=== PATIENT | female | born 1990 | race American Indian/Alaskan Native ===

== ENCOUNTER 2021-12-17 07:30 | Inpatient (IN) | payer OTHER ==
[2021-12-12 14:41] LABS: Hematocrit 31.6 % (30.3-42.9); Hemoglobin 10.3 gm/dl (10.1-14.3); Mean Corpuscular HGB Conc 33 % (30-34); Mean Corpuscular Volume 97 fl (79-97); Platelet Count 120 K/mm3 (140-440); Red Blood Count 3.25 M/mm3 (3.65-5.03); Red Cell Distribution Width 14.2 % (13.2-15.2)
--- NOTE | 2021-12-17 11:00 | History and Physical Report ---
History of Present Illness Date of examination: 12/17/21 Date of admission: 12/17/21 10:35 Chief complaint: here for repeat c/s but states she wants TOLAC History of present illness: at 39.0wks by LMP c/w [facility] care at [facility]. Pt states she was told that she could not have a TOLAC unless she went to [place] but she wants to deliver at this hospital and would like a TOLAC here at [facility] and if unsuccessful, then a repeat c/section. Pt is aware of the risks/benefits and alternatives. Pt admits to movement, passing mucus plug and intermittent ctx that are not painful. Pt denies LOF or vag bleeding or headache. Pt admits to movement. Pt also states she had childhood asthma but no wheezing in adulthood. Past History Past Medical History: asthma Past Surgical History: section (x1) Social history: no significant social history - Obstetrical History Expected Date of Delivery: 12/24/21 Actual Gestation: 39 Week(s) 0 Day(s) Hx # Term Pregnancies: 1 Number of Living Children: 0 Medications and Allergies Allergies Allergy/AdvReac Type Severity Reaction Status Date / Time amoxicillin Allergy Unknown Verified 12/11/21 14:36 Home Medications Medication Instructions Recorded Confirmed Last Taken Type Ferrous Sulfate [Iron 325 MG] 325 mg PO BID 12/11/21 12/11/21 Unknown History Vit-Fe Fumar-FA [ 1 tab PO QDAY 12/11/21 12/11/21 Unknown History Vitamin] Review of Systems All systems: negative (intermittent ctx) - Vital Signs Vital signs: Vital Signs Temp Pulse Resp BP Pulse Ox 98 F 102 H 20 105/66 97 12/11/21 12:25 12/11/21 12:25 12/11/21 12:25 12/11/21 12:25 12/11/21 12:25 Temp Pulse Resp BP Pulse Ox 98 F 102 H 20 105/66 97 12/11/21 12:25 12/11/21 12:25 12/11/21 12:25 12/11/21 12:25 12/11/21 12:25 - Physical Exam Breasts: Positive: deferred Cardiovascular: Normal S1 Lungs: Positive: Normal air movement Abdomen: Positive: soft Genitourinary (Female): Positive: normal external genitalia Uterus: Positive: enlarged (non-tender, gravid) Extremities: Positive: normal - Obstetrical FHR: category 1 Uterine Contraction Monitor Mode: External Cervical Dilatation: 2.5 Cervical Effacement Percentage: 50 station: -2 Uterine Contraction Pattern: Irregular Uterine Contraction Intensity: Mild Results Result Diagrams: 12/12/21 12:30 All other labs normal. Assessment and Plan Term IUP with previous c/s x1, desires TOLAC, GBS+ and resistant to clinda; Now in latent labor; H/O asthma 1. Discussed risks, benefits and alternatives of TOLAC and consents signed 2. Pt offered monroe bulb, educated on risks and benefits and alternatives, and will also give low dose pitocin. 3. Pt already had cbc done at preop with thrombocytopenia, will repeat same now, however no need to repeat RPR and COVID testing per [facility] protocol 4. May have IV pain med or epidural per pt choice 5. Hopeful for vag delivery. All questions encouraged and answered
[2021-12-17] MEDS ORDERED: METOCLOPRAMIDE 10 MG/2 ML INJ IV NR (11:01)
[2021-12-17] MEDS ORDERED: BICITRA ORAL LIQD 30ML PO NR (11:01)
[2021-12-17] MEDS ORDERED: FAMOTIDINE 20 MG/2 ML INJ IV NR (11:01)
[2021-12-17] MEDS ORDERED: GENTAMICIN/NS 100 MG/100 ML 100 MG/100 ML BAG IV NR (11:02)
[2021-12-17] MEDS ORDERED: LACTATED RINGERS 1,000 ML IV SCH (11:15)
[2021-12-17] MEDS ORDERED: OXYTOCIN DRIP 30 UNITS/500 ML BAG IV SCH ×2 (12:00→13:00)
[2021-12-17] MEDS ORDERED: ceFAZolin/Water 2 GM/20 ML 2 GM/20 ML SYRINGE IV NR (12:00)
[2021-12-17] MEDS ORDERED: PROMETHAZINE 25 MG TAB PO PRN (12:09)
[2021-12-17] MEDS ORDERED: LIDOCAINE (2%) 20 MG/1 ML VIAL 20 ML MDV INFILTRATI ONE (12:09)
[2021-12-17] MEDS ORDERED: OXYTOCIN 10 UNIT/1 ML INJ IM PRN (12:09)
[2021-12-17] MEDS ORDERED: MINERAL OIL 30 ML ORAL LIQD PO PRN (12:09)
[2021-12-17] MEDS ORDERED: CARBOPROST TROMETHAMINE 250 MCG/1 ML INJ IM PRN (12:09)
[2021-12-17] MEDS ORDERED: NalbUPHINE 10 MG/1 ML INJ IV PRN (12:09)
[2021-12-17] MEDS ORDERED: LOPERAMIDE 2 MG CAP PO PRN (12:09)
[2021-12-17] MEDS ORDERED: miSOPROStol 200 MCG TAB PR PRN (12:09)
[2021-12-17] MEDS ORDERED: TERBUTALINE 1 MG/1 ML INJ SUB-Q PRN (12:09)
[2021-12-17] MEDS ORDERED: ACETAMINOPHEN 325 MG TAB PO PRN (12:09)
[2021-12-17] MEDS ORDERED: ONDANSETRON 4 MG/2 ML INJ IV PRN (12:09)
[2021-12-17] MEDS ORDERED: METHYLERGONOVINE MALEATE 0.2 MG/ML VIAL IM PRN (12:09)
[2021-12-17] MEDS ORDERED: ePHEDrine SULFATE 50 MG/1 ML INJ IV PRN (12:09)
[2021-12-17] MEDS: LACTATED RINGERS 1,000 ML IV SCH ×2 (12:37→20:37)
[2021-12-17 12:40] LABS: Basophils % (Auto) 0.4 % (0.0-1.8); Eosinophils % (Auto) 0.4 % (0.0-4.3); Hematocrit 31.7 % (30.3-42.9); Hemoglobin 10.7 gm/dl (10.1-14.3); Lymphocytes # (Auto) 1.4 K/mm3 (1.2-5.4); Lymphocytes % (Auto) 28.9 % (13.4-35.0); Mean Corpuscular HGB Conc 34 % (30-34); Mean Corpuscular Volume 96 fl (79-97); Monocytes # (Auto) 0.4 K/mm3 (0.0-0.8); Monocytes % (Auto) 8.3 % (0.0-7.3); Platelet Count 113 K/mm3 (140-440); Red Blood Count 3.29 M/mm3 (3.65-5.03); Red Cell Distribution Width 13.8 % (13.2-15.2)
[2021-12-17] MEDS: OXYTOCIN DRIP 30 UNITS/500 ML BAG IV SCH ×5 (15:10→18:48)
[2021-12-17] MEDS: VANCOMYCIN/NS 1 GM/250 ML 1 GM/250 ML BAG IV SCH (17:00)
[2021-12-17] MEDS: fentaNYL 100 MCG/2 ML INJ IV PRN ×2 (17:45→23:02)
--- NOTE | 2021-12-18 01:51 | Event Note ---
Date: 12/18/21 Cook's catheter fell out. 5 cm dilated. Membranes artificially ruptured. Clear fluid.
--- NOTE | 2021-12-18 03:55 | Anesthesia Consultation ---
Anesthesia Consult and Med Hx Date of service: 12/18/21 - Airway Anesthetic Teeth Evaluation: Good ROM Head & Neck: Adequate Mallampati Class: Class II Intubation Access Assessment: Probably Good - Pulmonary Exam CTA: Yes - Cardiac Exam Cardiac Exam: RRR - Pre-Operative Health Status ASA Pre-Surgery Classification: ASA2 Proposed Anesthetic Plan: Epidural - Pulmonary Hx Smoking: No Hx Asthma: Yes Hx Respiratory Symptoms: No SOB: No COPD: No Home Oxygen Therapy: No Hx Pneumonia: No Hx Sleep Apnea: No - Cardiovascular System Hx Hypertension: No Hx Coronary Artery Disease: No Hx Heart Attack/AMI: No Hx Angina: No Hx Percutaneous Transluminal Coronary Angioplasty (PTCA): No Hx Cardia Arrhythmia: No Hx Pacemaker: No Hx Internal Defibrillator: No Hx Valvular Heart Disease: No Hx Heart Murmur: No Hx Peripheral Vascular Disease: No - Central Nervous System Hx Neuromuscular Disorder: No Hx Seizures: No CVA: No Hx Back Pain: No Hx Psychiatric Problems: No - Gastrointestinal Hx Ulcer: No Hx Gastroesophageal Reflux Disease: No - Endocrine Hx Renal Disease: No Hx End Stage Renal Disease: No Hx Cirrhosis: No Hx Liver Disease: No Hx Insulin Dependent Diabetes: No Hx Non-Insulin Dependent Diabetes: No Hx Thyroid Disease: No Hx Hypothyroidism: No Hx Hyperthyroidism: No - Hematic Hx Anemia: Yes Hx Sickle Cell Disease: No - Other Systems Hx Alcohol Use: No Hx Substance Use: No Hx Cancer: No Hx Obesity: No
--- NOTE | 2021-12-18 03:56 | Anesthesia Day of Surgery ---
Anesthesia Day of Surgery - Day of Surgery Patient Examined: Yes Patient H&P Reviewed: Yes Patient is NPO: Yes Beta Blockers: No Cardiac Clearance: No Pulmonary Clearance: No Nehemias's Test: N/A
--- NOTE | 2021-12-18 03:58 | Progress Note ---
Labor Epidural - Labor Epidural Start Time: 03:35 Stop Time: 03:43 Performed by:: bita Procedure: Epidural Requested for Labor Pain. H&P and PT Chart reviewed and consent obtained. Time out performed and the procedure was explained, all questions answered. Patient was placed in a sitting position with monitors applied. The PTs back was prepped and draped in usual sterile fashion. The Skin was localized with 3 mL of 1% lidocaine at L3-L4. A 17-gauge Touhy epidural needle was advanced to JEREMI with saline at 7 cm and no blood/CSF was noted via epidural needle. Epidural catheter was advanced to 12 cm. There was negative aspiration for blood and CSF in the catheter and negative response to a test dose of 3 ml 1.5% lidocaine w/ Epi and a sterile dressing was applied Patient tolerated the procedure well and there were no immediate complications noted.
[2021-12-18] MEDS ORDERED: NALOXONE 0.4 MG/1 ML INJ IV PRN (04:00)
[2021-12-18] MEDS ORDERED: ePHEDrine SULFATE 50 MG/1 ML INJ IV PRN (04:00)
[2021-12-18] MEDS: fentaNYL-BUPIV 2 MCG/ML-0.125% 200 MCG/100 ML BAG EPIDURAL SCH ×3 (04:38→19:50)
--- NOTE | 2021-12-18 09:35 | Ultrasound Report ---
ULTRASOUND OBSTETRIC INDICATION / CLINICAL INFORMATION: wants tolac. Clinical Gestational Age (GA) in weeks, days: 39, 1 TECHNIQUE: Transabdominal. COMPARISON: None available. FINDINGS: Single intrauterine . Biparietal Diameter = 9.5 cm = 38, 6 weeks, days Head Circumference = 34.4 cm = 39, 6 weeks, days Abdominal Circumference = 37.3 cm = 41, 2 weeks, days Femur Length = 6.9 cm = 35, 4 weeks, days Average Ultrasound Age (AUA) = 38, 6 weeks, days Heart Rate: 141 beats per minute. Estimated Weight in grams (if calculated): 3855 Estimated Weight Growth Percentile (if calculated): 81 Position: cephalic. Placenta: Right lateral and free of the os. Amniotic Fluid Volume: normal Amniotic Fluid Index (MICHAEL) in cm (if calculated): 10.1. IMPRESSION: 1. Single, living intrauterine with estimated sonographic age of 38, 6 weeks, days. 2. No significant sonographic abnormality. Signer Name: Dale Ware DO Signed: 12/18/2021 9:31 AM Workstation Name: [id number]
[2021-12-18] MEDS ORDERED: METOCLOPRAMIDE 10 MG/2 ML INJ IV ONE (09:57)
[2021-12-18] MEDS ORDERED: BICITRA ORAL LIQD 30ML PO ONE (09:57)
[2021-12-18] MEDS ORDERED: FAMOTIDINE 20 MG/2 ML INJ IV ONE (09:57)
[2021-12-18] MEDS ORDERED: ceFAZolin/Water 2 GM/20 ML 2 GM/20 ML SYRINGE IV NR (10:00)
[2021-12-18] MEDS ORDERED: LACTATED RINGERS 1,000 ML IV SCH (10:00)
--- NOTE | 2021-12-18 10:37 | Event Note ---
Date: 12/18/21 S: Feeling more pressure O: VE /-1, IUPC and FSE placed, CAT I tracing, Pit at 2mu A: Active labor @ 39.1 weeks, TOLAC P: Continue pitocin augmentation
[2021-12-18] MEDS ORDERED: OXYTOCIN DRIP 30 UNITS/500 ML BAG IV SCH (11:00)
[2021-12-18] MEDS: LACTATED RINGERS 1,000 ML IV SCH (12:23)
--- NOTE | 2021-12-18 13:06 | Event Note ---
Date: 12/18/21 S: Feeling more pressure O: VE 80/0, Cat I tracing, Pit at 8 mu A: TOLAC @ 39 weeks P: Discussed plan of care regarding continuing with trial of labor vs Will reassess in 2 -3 hrs
[2021-12-18] MEDS: VANCOMYCIN/NS 1 GM/250 ML 1 GM/250 ML BAG IV SCH (15:54)
--- NOTE | 2021-12-18 18:19 | Event Note ---
Date: 12/18/21 S: Feeling more pressure O: VE ant lip, 90, +1, Cat I tracing, Pit increased to 10 MU A: 39 week TOLAC P: Expect
[2021-12-18] MEDS ORDERED: LIDOCAINE (2%) 20 MG/1 ML VIAL 20 ML MDV INFILTRATI ONE (23:54)
[2021-12-19] MEDS ORDERED: LIDOCAINE (2%) 20 MG/1 ML VIAL 20 ML MDV INFILTRATI ONE (00:43)
[2021-12-19] MEDS ORDERED: LANOLIN/ZINC/DIMETHICONE (LANSINOH) 7 GM TP PRN (01:11)
[2021-12-19] MEDS ORDERED: ACETAMINOPHEN 325 MG TAB PO PRN (01:11)
[2021-12-19] MEDS ORDERED: WITCH HAZEL/ GLYCERIN PAD TP PRN (01:11)
[2021-12-19] MEDS ORDERED: BENZOCAINE/MENTHOL 20/0.5% TOP SPRAY 56 GM TP PRN (01:11)
--- NOTE | 2021-12-19 01:25 | Procedure Note ---
OB Delivery Note - Delivery Date of Delivery: 12/19/21 Surgeon: MU PRADO Estimated blood loss: 500cc - Vaginal Delivery presentation: vertex Delivery position: OA Intrapartum events: shoulder dystocia, other(please specify) (Previous delivery, desires TOLAC) Delivery induction: other (Cook's catheter, Pitocin) Delivery augmentation: rupture of membranes Delivery monitor: external FHT, external uterine, internal uterine Route of delivery: Delivery placenta: spontaneous Delivery cord: 3 umbilical vessels Episiotomy: midline Delivery laceration: 2nd degree, other ((R) periurethral) Delivery repair: vicryl (2nd degree perineal laceration repaired with 2-0 Vicryl and 3-0 Vicryl) Anesthesia: local, epidural Delivery comments: Patient desired a trial of labor after delivery. The patient achieved complete cervical dilation. She produced the head. Thereafter she pushed, but there was a 10-second shoulder dystocia that was easily resolved with delivery of the posterior shoulder. The remainder of the was delivered without issue. Mouth and nose were bulb suctioned in the field. Cord was clamped and cut. was handed off to the waiting nursery team. Placenta was spontaneously expelled. The fundus was firm. Second-degree perineal laceration was repaired with 2-0 Vicryl and 3-0 Vicryl. The right periurethral laceration was pared with 3-0 Vicryl. The patient tolerated procedure well. All instruments were removed from the patient's vagina after confirmation with finger sweep. - A at 1 minute: 8 at 5 minutes: 9 (The weight of the was 4.2 kg.) Gender: Male
[2021-12-19] MEDS: IBUPROFEN 800 MG TAB PO SCH ×3 (04:30→23:49)
[2021-12-19] MEDS: HYDROcodone/ACETAMINOPHEN 5-325 MG TAB PO PRN ×2 (09:29→17:35)
--- NOTE | 2021-12-19 10:55 | Post Anesthesia Evaluation ---
- Post Anesthesia Evaluation Patient Participated: Yes Airway Patent: Yes Stable Respiratory Function: Yes Nausea/Vomiting: No Temp > 96.8F: Yes Pain Manageable: Yes Adequeate Hydration: Yes Anesthesia Complications: No Block Receding Appropriately: Yes Patient on Ventilator: No
[2021-12-19] MEDS: DOCUSATE SODIUM 100 MG CAP PO SCH ×2 (17:36→23:48)
[2021-12-20] MEDS: IBUPROFEN 800 MG TAB PO SCH ×4 (06:30→23:14)
[2021-12-20 08:47] LABS: Hematocrit 22.5 % (30.3-42.9); Hemoglobin 7.8 gm/dl (10.1-14.3); Mean Corpuscular HGB Conc 35 % (30-34); Mean Corpuscular Volume 95 fl (79-97); Platelet Count 118 K/mm3 (140-440); Red Blood Count 2.38 M/mm3 (3.65-5.03)
[2021-12-20] MEDS: DOCUSATE SODIUM 100 MG CAP PO SCH ×2 (09:10→23:14)
--- NOTE | 2021-12-20 17:40 | Progress Note ---
Assessment and Plan A: PPD # 1 - stable P: Discharge home in am Discharge instructions given Subjective - Subjective Date of service: 12/20/21 Principal diagnosis: PPD # 1 - stable Patient reports: appetite normal : doing well Objective - Vital Signs Latest vital signs: Vital Signs Temp Pulse Resp BP Pulse Ox Pulse Ox 12/20/21 16:54 97.6 F 92 H 18 105/71 97 12/20/21 09:03 97.6 F 76 18 95/64 96 12/20/21 08:00 98 12/20/21 06:30 18 12/20/21 00:49 18 12/20/21 00:15 97.4 F L 76 18 105/69 97 12/19/21 23:49 20 12/19/21 20:15 100 12/19/21 18:35 18 Intake and Output 12/20/21 12/20/21 12/20/21 06:59 14:59 22:59 Intake Total 360 240 Balance 360 240 Intake: Oral 240 Intake, Free Water 360 Other: Total, Intake Amount 240 # Voids Void 1 1 - Exam Breasts: Present: deferred, mass Lungs: Present: Clear to auscultation Abdomen: Present: soft Vulva: both: normal Uterus: Present: fundal height below umbilicus Deep Tendon Reflex Grade: Normal +2 - Labs Labs: Abnormal lab results 12/20/21 Range/Units 08:20 WBC 11.2 H (4.5-11.0) K/mm3 RBC 2.38 L (3.65-5.03) M/mm3 Hgb 7.8 L (10.1-14.3) gm/dl Hct 22.5 L D (30.3-42.9) % MCH 33 H (28-32) pg MCHC 35 H (30-34) % Plt Count 118 L (140-440) K/mm3
--- NOTE | 2021-12-20 17:42 | Discharge Summary ---
Providers - Providers Date of Admission: 12/19/21 01:11 Date of discharge: 12/21/21 Attending physician: VINNY LEONARD Primary care physician: VINNY LEONARD Hospitalization Reason for admission: active labor Delivery: Laceration: 2nd degree Incision: intact Other procedures: none complications: none Discharge diagnosis: IUP at term delivered [place] baby: male Condition at discharge: Good Disposition: 01 HOME / SELF CARE / HOMELESS Plan - Provider Discharge Summary Activity: routine, no sex for 6 weeks, no strenuous exercise Diet: routine Instructions: routine Additional instructions: [] Smoking cessation referral if applicable(refer to patient education folder for contact #) [] Refer to [facility] Booklet Call your doctor immediately for: * Fever > 100.5 * Heavy vaginal bleeding ( >1 pad per hour) * Severe persistent headache * Shortness of breath * Reddened, hot, painful area to leg or breast * Drainage or odor from incision. * Keep incision clean and dry at all times and follow doctor's instructions regarding bathing/showering - Follow up plan Follow up: VINNY LEONARD MD [Primary Care Provider] - 6 Weeks Forms: [facility] Discharge Summary
[2021-12-21] MEDS: IBUPROFEN 800 MG TAB PO SCH ×2 (05:11→11:25)
[2021-12-21 09:09] VITALS: BP 116/73
[2021-12-21] MEDS: DOCUSATE SODIUM 100 MG CAP PO SCH (11:25)
[2021-12-21] MEDS ORDERED: MEASLES, MUMPS & RUBELLA 12,500 UNIT/0.5 ML VACCINE SUB-Q ONE (12:00)
== END 2021-12-21 15:45 | disposition home or self-care (01) | DRG 775 ==
LOC: APU 10:35 → UNDOADMIN 10:35 → LD 11:40 → APU 11:40 → LD 12-19 01:11 → OB 12-19 09:56 → LD 12-19 09:56
PROVIDERS: ADMIT Obstetrics & Gynecology; ATTEND Obstetrics & Gynecology
PROC: 10E0XZZ Delivery of Products of Conception, External Approach (ICD-10-PCS; principal; 2021-12-19)
PROC: 0KQM0ZZ Repair Perineum Muscle, Open Approach (ICD-10-PCS; 2021-12-19)
PROC: 10907ZC Drainage of Amniotic Fluid, Therapeutic from Products of Conception, Via Natural or Artificial Opening (ICD-10-PCS; 2021-12-19)
PROC: 3E0R3BZ Introduction of Anesthetic Agent into Spinal Canal, Percutaneous Approach (ICD-10-PCS; 2021-12-19)
PROC: 00HU33Z Insertion of Infusion Device into Spinal Canal, Percutaneous Approach (ICD-10-PCS; 2021-12-19)
PROC: 0U7 Female Reproductive System, Dilation (ICD-10-PCS; 2021-12-19)
PROC: 3E0134Z Introduction of Serum, Toxoid and Vaccine into Subcutaneous Tissue, Percutaneous Approach (ICD-10-PCS; 2021-12-21)
DX: O99.824 Streptococcus B carrier state complicating childbirth (principal); Z3A.39 39 weeks gestation of pregnancy; O70.1 Second degree perineal laceration during delivery; Z37.0 Single live birth; Z20.822 Contact with and (suspected) exposure to COVID-19; O99.52 Diseases of the respiratory system complicating childbirth; O66.0 Obstructed labor due to shoulder dystocia; Z3A.38 38 weeks gestation of pregnancy; Z23 Encounter for immunization
CPT/HCPCS: 36415; 76816; 85025; 85027; 86592; 86850; 86900; 86901; 90707; G0378; J3490; J7502; J2590; J3010; J3370; J7120; U0003